=== PATIENT | female | born 1990 | race Caucasian/White ===

== ENCOUNTER 2017-01-01 17:27 | Emergency (ER) | payer OTHER ==
[~2017-01-01] VITALS: Ht 157.5 cm; Wt 63.0 kg
[2017-01-01 17:44] VITALS: BP 113/78
--- NOTE | 2017-01-01 18:13 | NUR ---
PATIENT TO BED 8.
--- NOTE | 2017-01-01 18:20 | NUR ---
26F BIB SELF C/O IRRITATION TO BL EYES; PT STATES PLACED FAKE EYELASHES ON SUNDAY, CAUSES EYELIDS TO BE RED/PUFFY AT THIS TIME; PT REMOVED FAKE EYELASHES; DENIES PAIN, BUT C/O "ITCHYNESS AND IRRITATION" TO SITE AT THIS TIME; PT DENIES VISION CHANGES AT THIS TIME. PT A&OX4, PERRLA, BL LUNG SOUNDS CLEAR, RR EVEN/UNLABORED, SKIN IS WARM/DRY/INTACT AT THIS TIME; DENIES N/V/D AT THIS TIME; PT RESTING IN BED W/ HOB ELEVATED AND IN LOWEST POSITION; POSITIONED FOR COMFORT; ER MD MADE AWARE OF STATUS. WILL CONTINUE TO MONITOR.
[2017-01-01 18:31] VITALS: BP 110/76
--- NOTE | 2017-01-01 18:31 | NUR ---
Patient discharged with v/s stable. Written and verbal after care instructions given and explained. Patient alert, oriented and verbalized understanding of instructions. Ambulatory with steady gait. All questions addressed prior to discharge. ID band removed. Patient advised to follow up with PMD. Rx ofBENADRYL ALLERGY 25MG KAPGEL, TYLENOL 325MG TAB & ERYTHROMYCIN 0.5% OPTHALMIC OINTMENT given. Patient educated on indication of medication including possible reaction and side effects. Opportunity to ask questions provided and answered.
== END 2017-01-01 18:31 | disposition home or self-care (01) ==
LOC: MED 17:27
DX: H01.006 Unspecified blepharitis left eye, unspecified eyelid (principal); H01.003 Unspecified blepharitis right eye, unspecified eyelid

== ENCOUNTER 2021-09-16 13:02 | Emergency (ER) | payer OTHER ==
[~2021-09-16] VITALS: Ht 154.9 cm; Wt 81.6 kg
[2021-09-16 13:08] VITALS: BP 131/89
[2021-09-16] MEDS ORDERED: AZIT250T4 PO (13:31)
[2021-09-16] MEDS ORDERED: PROM118S5 PO (13:31)
[2021-09-16] MEDS ORDERED: ALBU0.0912 IH (13:31)
--- NOTE | 2021-09-16 13:41 | NUR ---
PT SEEN BY SADIA XIONG, NO NURSING INTERVENTIONS PROVIDED.
[2021-09-16 13:42] VITALS: BP 131/89
--- NOTE | 2021-09-16 13:42 | NUR ---
Patient discharged with v/s stable. Written and verbal after care instructions ABOUT ACUTE BRONCHITIS given and explained. Patient alert, oriented and verbalized understanding of instructions. Ambulatory with steady gait. All questions addressed prior to discharge. ID band removed. Patient advised to follow up with PMD. Rx of ALBUTEROL, AZITHROMYCIN, PROMETHAZINE given.
== END 2021-09-16 13:42 | disposition home or self-care (01) ==
LOC: MED 13:02
DX: J40 Bronchitis, not specified as acute or chronic (principal); R05.9 Cough, unspecified; Z79.899 Other long term (current) drug therapy
CPT/HCPCS: 99283

== ENCOUNTER 2023-08-12 13:52 | Emergency (ER) | payer OTHER ==
[~2023-08-12] VITALS: Ht 154.9 cm; Wt 85.8 kg
[~2023-08-12 13:52] MED LIST: ALBU0.0912 IH; AZIT250T4 PO; PROM118S5 PO
[2023-08-12 14:04] VITALS: BP 133/86; PULSE 93; RESP 17; TEMP 98.2; O2SAT 96
[2023-08-12 14:48] LABS: FLU A ANTIGEN negative (NEGATIVE); FLU B ANTIGEN negative (NEGATIVE)
[2023-08-12] MEDS ORDERED: FLONAS NS (15:15)
[2023-08-12] MEDS ORDERED: BPM/473S94 PO (15:15)
[2023-08-12] MEDS ORDERED: CETI10CA6 PO (15:15)
[2023-08-12 15:29] VITALS: BP 133/86; PULSE 93; RESP 17; TEMP 98.2; O2SAT 96
== END 2023-08-12 15:29 | disposition home or self-care (01) ==
LOC: MED 13:52
DX: J06.9 Acute upper respiratory infection, unspecified (principal); Z20.822 Contact with and (suspected) exposure to COVID-19; J30.9 Allergic rhinitis, unspecified; Z79.899 Other long term (current) drug therapy
CPT/HCPCS: 71045; 99284